=== PATIENT | female | born 1955 | race Caucasian/White ===

== ENCOUNTER 2023-05-20 10:00 | Outpatient (RCR) | payer MEDICARE, OTHER, SELFPAY ==
--- NOTE | 2023-02-17 12:27 | HP.PTEVAL_ITS ---
Patient's Visit Information Visit Information Visit Information: PRIYA MAYEN is a 67 year old F referred to Physical Therapy by Dr. Cuba Bales DO with a diagnosis of uni OA B knees. 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 She needs her knees replaced. He wants her to do AT to get stronger and lose weight and also get the water off her legs (a medication). She usually has compression stockings that she puts them on. The Dr sees her back in Mar. She uses the rolling walker since Jun. She uses it all the time. She can get around her house without it but she would be struggling. She is trying to drink a Quart of water a day. She has stairs at home to washer and dryer with 6 steps into the house with 2 rails. Sit to stand: no real trouble but uses her arms to get up. She feels that her L knee is worse than her R knee. Pain R knee pain: Pain Intensity (Out of 10): 4 L knee pain: Pain Intensity (Out of 10): 6 Objective Objective: Gait: walks with front wheeled walker with good stride length, decreased heel to toe, flexed trunk, increased SOB and increase pressure through B UE's LE MMT: R hip flex 10.5 and L 11.5 R knee ext 15.6 and L 17# R knee flex 12.8 and L 11..4 R knee AROM 101 flex -13 degrees from full extension L knee AROM 95 and -21 degrees from full extension Sit to stand: able to get up using B UE's Standing heel and toe raises Bridges 1 X 10 ( very little ROM) Pt had a lot of questions re PT/AT/surgery/losing weight etc and discussed Balance/Special Test Scores Lower Extremity Functional Score: 24 Goals Goal 1:: I HEP Goal Time Frame: 6-8 Weeks Goal 2:: Increase B knee AROM (at the time of the eval: R knee AROM 101 flex - 13 degrees from full extension L knee AROM 95 and -21 degrees from full extension). Goal Time Frame: 6-8 Weeks Goal 3:: Increase LE strength (at the time of the eval: LE MMT: R hip flex 10.5 and L 11.5 R knee ext 15.6 and L 17# R knee flex 12.8 and L 11..4) Goal Time Frame: 6-8 Weeks Goal 4:: Be able to walk back to the treatment rooms with more heel to toe gait pattern and decreased SOB Goal Time Frame: 6-8 Weeks Rehabilitation Potential Rehabilitation Potential: Good Anticipated Interventions Patient/Client Instruction: Educate patient on: Condition and Plan of Care For the Purpose of:: To decrease pain, To decrease swelling/inflammation, To increase ROM, To improve nutrient delivery to tissue, To improve muscle performance and motor function, To improve ability to perform ADL's, To increase tolerance to activity/condition/position, To decrease level of supervision to perform tasks, To improve ability of physical actions for home/community/work/leisure, To improve gait and locomotor functions, To improve health of tissue, To decrease soft tissue restriction, To increase flexibility/ROM, To improve balance and To improve safety with gait Therapeutic Exercise to Include: Strength training, Endurance training, Balance training, Postural training, Flexibilty training, Gait and locomotor training, Neuromotor development, In an aquatic setting , Active ROM, Dynamic Lumbar Stabilization and Scapular Strength/Stabilization For the Purpose of:: To decrease pain, To decrease swelling/inflammation, To increase ROM, To improve nutrient delivery to tissue, To increase oxygenation perfusion, To improve muscle performance and motor function, To improve ability to perform ADL's, To increase tolerance to activity/condition/position, To improve performance and independence with ADL's, To decrease level of supervision to perform tasks, To improve ability of physical actions for home/community/work/leisure, To improve gait and locomotor functions, To improve health of tissue, To decrease soft tissue restriction, To increase flexibility/ROM, To improve endurance, To improve balance and To improve safety with gait Functional Training to Include: Gait training For the Purpose of:: To improve gait and locomotor functions and To improve safety with gait Text: Thank you for the opportunity to evaluate your patient. For Medicare and Medicare HMO plans, please review the plan of care and approve it. It will need to be FAXED BACK to us at [phone] for Medicare purposes. For Medicare only, by signing this I certify the plan of care. Please let me know if there are questions or concerns regarding this plan of care. Physician Signature: Date:
--- NOTE | 2023-03-25 12:01 | HP.PTREVAL_ITS ---
Re-Evaluation Intro: Dr. Cuba Bales, DO, It has been my pleasure to treat PRIYA MAYEN over the last 10 visits for uni OA B knees. Please see the progress note below for an update on the physical therapy plan of care! Subjective Subjective: Just had the initial eval for her Lymphedema support stockings. She has been faithful in getting her exercises done. She likes the water. He helps her with her stretches. She feels that he endurance is getting be tter. The weather increases her pain. Can now sit with her legs out on the ottoman and she could not do that before. Objective Objective/Function: MMT: R hip flex 11.8 and L 12.5 R knee ext 21.7 and L 21.6 R knee flex 14.7 and L 14.6 R knee AROM 104 flex -13 degrees from full extension L knee AROM 104 and -12 degrees from full extension). Plan Plan Plan: ++Pt is fearful of water+++ 2X/ week for 8 weeks for AT for knee AROM (flex/ext), LE strength (hip knee and ankle), general endurance, gait training with HEP Pt will be getting treatments for the swelling in her legs per her subjective Balance/Gait/Functional tests Balance/Special Test Scores Lower Extremity Functional Score: 33 Goals Goals Goal 1:: I HEP Goal Time Frame: 6-8 Weeks Goal 2:: Increase B knee AROM (at the time of the eval: R knee AROM 101 flex - 13 degrees from full extension L knee AROM 95 and -21 degrees from full extension). Goal Time Frame: 6-8 Weeks Goal Progress: Progressing Goal 3:: Increase LE strength (at the time of the eval: LE MMT: R hip flex 10.5 and L 11.5 R knee ext 15.6 and L 17# R knee flex 12.8 and L 11..4 Goal Time Frame: 6-8 Weeks Goal Progress: Progressing Goal 4:: Be able to walk back to the treatment rooms with more heel to toe gait pattern and decreased SOB Goal Time Frame: 6-8 Weeks Goal Progress: Progressing Anticipated Interventions Anticipated Interventions Patient/Client Instruction: Educate patient on: Condition and Plan of Care For the Purpose of:: To decrease pain, To decrease swelling/inflammation, To increase ROM, To improve nutrient delivery to tissue, To improve muscle performance and motor function, To improve ability to perform ADL's, To increase tolerance to activity/condition/position, To decrease level of supervision to perform tasks, To improve ability of physical actions for home/community/work/leisure, To improve gait and locomotor functions, To improve health of tissue, To decrease soft tissue restriction, To increase f lexibility/ROM, To improve balance and To improve safety with gait Therapeutic Exercise to Include: Strength training, Endurance training, Balance training, Postural training, Flexibilty training, Gait and locomotor training, Neuromotor development, In an aquatic setting , Active ROM, Dynamic Lumbar Stabilization and Scapular Strength/Stabilization For the Purpose of:: To decrease pain, To decrease swelling/inflammation, To increase ROM, To improve nutrient delivery to tissue, To increase oxygenation perfusion, To improve muscle performance and motor function, To improve ability to perform ADL's, To increase tolerance to activity/condition/position, To improve performance and independence with ADL's, To decrease level of supervision to perform tasks, To improve ability of physical actions for home/community/work/leisure, To improve gait and locomotor functions, To improve health of tissue, To decrease soft tissue restriction, To increase flexibility/ROM, To improve endurance, To improve balance and To improve safety with gait Functional Training to Include: Gait training For the Purpose of:: To improve gait and locomotor functions and To improve safety with gait Re-Evaluation Ending Re-evaluation ending: Please do not hesitate to contact me at [phone] by phone or if you have questions or concerns regarding this new plan of care! Sincerely, GANESH Zurita
--- NOTE | 2023-03-25 12:41 | HP.OTEVAL ---
Patient's Visit Information Visit Information Visit Information: PRIYA MAYEN is a 67 year old F, referred to Occupational Therapy by Dr. Cuba Bales DO, with a diagnosis of lymphedema. Date of Evaluation: 03/25/23 Occupational Therapist: KIMBERLYN Mathis/Shayna, CHT Subjective Subjective: This 67 year old female was seen for OT eval with dx of ALEKS lymphedema: pt states she has had swelling in her LE for about three years. pt states she wears compression socks. She thinks the compression is 20-30 mmHg. Pt states she just got the compressions socks. pt states she has been using compression socks for about two years. Swelling has not changed at this time- pt is undergoing PT for bilateral knees in hope to get stronger so she can have TKR. PT states the pool therapy she was doing is helpful and she has noticed her legs are not as red. pt would like to know what she can do to decrease her leg swelling. Lymphedema (Circumferential Measure) Mid-foot: right 26cm left 26cm Ankle: right 35cm left 35cm Lower calf: right 35cm left 37cm Largest calf: right 49cm left 49cm Below knee: right 49cm left 51cm Lower Limb Functional Index Lower Extremity Functional Score: 13 Goals Goal: Patient will demonstrate a 20% reduction in edema by discharge: Yes Goal: Patient will demonstrate adequate knowledge of self-bandaging by the end of the first week.: Yes Goal: Patient will demonstrate adequate knowledge of self-massage by the end of the second week.: Yes Goal: Patient will demonstrate adequate knowledge of skin care and precautions by the end of the first week.: Yes Goal: Patient will demonstrate adequate knowledge of therapeutic exercises by discharge.: Yes Goal: Patient will select an appropriate compression garment and demonstrate adequate knowledge of correct donning technique, care and wearing schedule by discharge.: Yes Goal: Patient will voice understanding of need to replace compression garment every four to six months by discharge.: Yes Rehabilitation General Assessment: pt demo with BLE edema this decreases pts safe mobility- Rehabilitation Potential: Questionable Anticipated Interventions Anticipated Interventions: Education re Diagnosis, Manual Lymph Drainage, Education re Life-long lymphedema Management, Education re Self-Bandaging Techniques, Education re Skin Care and Precautions, Education re Self Massage Techniques, Education re Correct Donning Tech,Care&Wearing Sched Comp Garments and Home Program Visit Plan Frequency: 1-2x /Week Duration: 2-4 Weeks TEXT: Thank you for the opportunity to evaluate your patient. For Medicare and Medicare HMO plans, please review the plan of care and approve it. It will need to be FAXED BACK to us at [phone] for Medicare purposes. Please let me know if there are questions or concerns regarding this plan of care. Physician Signature: Date:
--- NOTE | 2023-04-22 10:57 | HP.PTREVAL_ITS ---
Re-Evaluation Intro: Dr. Cuba Bales, DO, It has been my pleasure to treat PRIYA MAYEN over the last 18 visits for uni OA B knees. Please see the progress note below for an update on the physical therapy plan of care! Subjective Subjective: Pt reports that the Dr injected her knees and that he would schedule surgery 07/06/22 for L TKR. Pt feels comfortable with her water therapy and has papers so she knows what to do in the water in the meantime. She is doing her HEP as well. Objective Objective/Function: 2X/ week for 4 weeks for steps ups, stairs, hip and knee strengthening (review HEP and add to it for 20 min routine) and then work out in the gym for increase muscle strength. Plan Plan Plan: 2X/ week for 4 additional weeks for review indep (Review kitchen sink exercises) HEP (step ups and stairs), LE (hip and knee strengthening, sit to stand exercises) with HEP. Balance/Gait/Functional tests Balance/Special Test Scores Lower Extremity Functional Score: 35 Goals Goals Goal 1:: I HEP Goal Time Frame: 6-8 Weeks Goal Progress: Goal Met Goal 2:: Increase B knee AROM (at the time of the eval: R knee AROM 101 flex - 13 degrees from full extension L knee AROM 95 and -21 degrees from full extension). Goal Time Frame: 6-8 Weeks Goal Progress: Progressing Goal 3:: Increase LE strength (at the time of the Re-eval: LE MMT: R hip flex 11.7 and L 11.8 R knee ext 25.8 and L 25.6 R knee flex 15.6 and L 16.2 Goal Time Frame: 6-8 Weeks Goal Progress: Progressing Goal 4:: Be able to walk back to the treatment rooms with more heel to toe gait pattern and decreased SOB Goal Time Frame: 6-8 Weeks Goal Progress: Progressing Goal 5:: Be able to go up and down the steps recip with 2 hand rails with pushing through her legs going up the steps Goal Time Frame: 2-4 Weeks Anticipated Interventions Anticipated Interventions Patient/Client Instruction: Educate patient on: Condition and Plan of Care For the Purpose of:: To decrease pain, To decrease swelling/inflammation, To increase ROM, To improve nutrient delivery to tissue, To improve muscle performance and motor function, To improve ability to perform ADL's, To increase tolerance to activity/condition/position, To decrease level of supervision to perform tasks, To improve ability of physical actions for home/community/work/leisure, To improve gait and locomotor functions, To improve health of tissue, To decrease soft tissue restriction, To increase flexibility/ROM, To improve balance and To improve safety with gait Therapeutic Exercise to Include: Strength training, Endurance training, Balance training, Postural training, Flexibilty training, Gait and locomotor training, Neuromotor development, In an aquatic setting , Active ROM, Dynamic Lumbar Stabilization and Scapular Strength/Stabilization For the Purpose of:: To decrease pain, To decrease swelling/inflammation, To increase ROM, To improve nutrient delivery to tissue, To increase oxygenation perfusion, To improve muscle performance and motor function, To improve ability to perform ADL's, To increase tolerance to activity/condition/position, To improve performance and independence with ADL's, To decrease level of supervision to perform tasks, To improve ability of physical actions for home/community/work/leisure, To improve gait and locomotor functions, To improve health of tissue, To decrease soft tissue restriction, To increase flexibility/ROM, To improve endurance, To improve balance and To improve safety with gait Functional Training to Include: Gait training For the Purpose of:: To improve gait and locomotor functions and To improve safety with gait Re-Evaluation Ending Re-evaluation ending: Please do not hesitate to contact me at [phone] by phone or if you have questions or concerns regarding this new plan of care! Sincerely, GANESH Zurita
--- NOTE | 2023-05-20 10:58 | HP.PTDCSUM ---
Discharge Summary D/C summary: It has been my pleasure to treat PRIYA MAYEN referred by Dr. Cuba Bales DO, with the diagnosis of uni OA B knees for a total of 26 visit(s). Discharge Date: 05/20/23 Please see the following information for a summary of their discharge status. Subjective Subjective: Pt reports that she is doing ok. She is doing her exercises everyday at home. She does them in AM and PM sometimes. Pt feels that she is getting stronger. She feels her SOB is still short but she has found out that her iron levels are low and she feels that she now has a little more energy since changing her meds. Pt feels stronger and once in awhile she will walk off without her walker. She is planning a TKR on 07-06-22. Pain R knee pain: Pain Intensity (Out of 10): 2 L knee pain: Pain Intensity (Out of 10): 2 B Hips: Pain Intensity (Out of 10): 1 Overall Improvement % Improvement: 70 Objective Objective/Function: LE MMT: R hip flex 14.6 and L 16.3 R knee ext 25.8 and L 25.6 R knee flex 15.6 and L 16.5 R knee AROM 107 flex -13 degrees from full extension L knee AROM 100 and -10 degrees from full extension). Stairs: Goals Goal 1:: I HEP Goal Progress: Goal Met Goal 2:: Increase B knee AROM (at the time of the eval: R knee AROM 101 flex -13 degrees from full extension L knee AROM 95 and -21 degrees from full extension). Goal Progress: Progressing Goal 3:: Increase LE strength (at the time of the Re-eval: LE MMT: R hip flex 11.7 and L 11.8 R knee ext 25.8 and L 25.6 R knee flex 15.6 and L 16.2 Goal Progress: Goal Met Goal 4:: Be able to walk back to the treatment rooms with more heel to toe gait pattern and decreased SOB Goal Progress: Progressing Goal 5:: Be able to go up and down the steps recip with 2 hand rails with pushing through her legs going up the steps Goal Progress: Goal Met Plan Plan: DC PT to HEP and AT [facility] program D/C Information Discharge Comments: DC PT to HEP d/c sentence: If there are questions or concerns regarding this patient's physical therapy, please feel free to call me at [phone]. Thank you for the referral of this patient. Sincerely, Soha Frank, MPT Balance/Gait/Functional tests Balance/Special Test Scores Lower Extremity Functional Score: 46 Improvement % Improvement: 70
== END 2023-05-20 19:00 | disposition home or self-care (01) ==
LOC: PT 10:00
PROVIDERS: Referring Provider Orthopaedic Surgery; Visit Provider Orthopaedic Surgery
DX: M17.0 Bilateral primary osteoarthritis of knee (principal)
CPT/HCPCS: 97110; 97113; 97161; 97166; 97530

== ENCOUNTER 2024-05-18 10:00 | Outpatient (RCR) | payer MEDICARE, OTHER, SELFPAY ==
--- NOTE | 2024-01-07 15:04 | HP.PTEVAL_ITS ---
Patient's Visit Information Visit Information Visit Information: PRIYA MAYEN is a 68 year old F referred to Physical Therapy by MARII GOMES with a diagnosis of 01/04/24 Left TKR. Date of Evaluation: 01/07/24 Physical Therapist: Kimberly Pavon DPT Visit Plan Frequency: 2-3x /Week Duration: 4 Weeks Plan: 01/04/24 Left TKR- Focus on ROM, strength and functional mobility HEP Given IE: Quad set, SLR, heel side, bolster extn stretch Subjective Subjective: Left TKR 01/04/[address] Bales at [place] and they spent the night and came home the next day. They feel that things are progressively getting better. Pain is located in the anterior knee- she has pain along the thigh- where the tourniquet was inflated. Worst: 5/10. Agg: bending her knee, getting up from sitting. Best: 0/10 Eases: laying in bed, ice, meds. No N/T in the toes. They can live on one floor- with 4 steps to enter- no issues to getting in and out. She has been using a FWW prior to surgery for about 1.5 years. is home to help as needed. She has lymphedema prior to surgery so she has been doing exercises- ankle pumps, marching, hip abd, seated ankle pumps, glut sets. Sleep: chair since surgery. PMHX/Meds: see list Objective Objective: Posture: forward head, rounded shoulders- can correct but does not maintain Observation: ELEUTERIO hose are very tight- blood seepage from incision pooling in bottom of bandage- pt plans to call MD after apt (did not remove) Palpation: not tender to touch Gait: step to with FWW- slow gabriela ROM: 30-70 Strength: Core: fair minus, Hip: 4-/5 throughout, Knee: Flexion: 22 Extn: 24 Ankle: 5/5 Transfers: indep with bed mobility- Sit to Stand: required UE A and is slow Balance/Special Test Scores WOMAC Total Score: 70 WOMAC Percentatge: 27.0900 Goals Goal 1:: Patient will be I with HEP and progression Goal Time Frame: 6-8 Weeks Goal 2:: Patient will demo 0-115 degrees of ROM in the left knee Goal Time Frame: 6-8 Weeks Goal 3:: Patient will ambulate >150 feet with LRD and a normalized gait pattern Goal Time Frame: 6-8 Weeks Goal 4:: Patient will asc/desc 8 stairs recip with 1 HR Goal Time Frame: 6-8 Weeks Goal 5:: Patient will report 80% improvement Goal Time Frame: 6-8 Weeks Rehabilitation Potential Physical Therapy Diagnosis: Patient presents s/p Left TKR- she has decreased ROM, LE and core strength/stabilization, proprioception, flex and muscular endurance leading to abnormal gait and decreased ability with ADL's. Rehabilitation Potential: Fair Anticipated Interventions Patient/Client Instruction: Educate patient on: Benefits of Fitness Program Therapeutic Exercise to Include: Strength training, Balance training, Coordination, Agility training, Body mechanics, Postural training, Flexibilty training, Gait and locomotor training, Neuromotor development, Passive ROM, Active ROM, Dynamic Lumbar Stabilization and Scapular Strength/Stabilization For the Purpose of:: To improve muscle performance and motor function Functional Training to Include: Gait training TENS: Yes Cryotherapy (ice pack, ice massage): Yes Thermo therapy (hot pack): Yes Ultrasound (thermal/non thermal): No Text: Thank you for the opportunity to evaluate your patient. For Medicare and Medicare HMO plans, please review the plan of care and approve it. It will need to be FAXED BACK to us at [phone] for Medicare purposes. For Medicare only, by signing this I certify the plan of care. Please let me know if there are questions or concerns regarding this plan of care. Physician Signature: Date:
--- NOTE | 2024-02-04 10:55 | HP.PTREVAL ---
Re-Evaluation Intro: MARII GOMES, It has been my pleasure to treat PRIYA MAYEN over the last 9 visits for 01/04/24 Left TKR. Please see the progress note below for an update on the physical therapy plan of care! Subjective Subjective: Patient reports that she is getting stronger. She is making good progress and is sleeping in her bed for 1.5 hours at night. Weaning from pain medication. She still has a bad right knee and feels it limits her mobility Objective Objective/Function: Posture: forward head, rounded shoulders- can correct but does not maintain Observation: good healing of incision- no s.s of infection Palpation: not tender to touch Gait: step through with FWW- attempted cane, pt is not ready with poor heel/toe pattern and required min A for balance- slow gabriela ROM: 7-112 Strength: Core: fair minus, Hip: 4-/5 throughout, Knee: Flexion: 37 Extn: 30 Ankle: 5/5 Transfers: sit to stand requires single UE A Plan Plan Plan: 02/04/24: Continue 2x a week for 4 weeks with current POC 01/04/24 Left TKR- Focus on ROM, strength and functional mobility HEP Given IE: Quad set, SLR, heel side, bolster extn stretch Balance/Gait/Functional tests Balance/Special Test Scores Tug Test: 20-30sec.=variable mobility WOMAC Total Score: 48 WOMAC Percentage: 50.0000 Goals Goals Goal 1:: Patient will be I with HEP and progression Goal Time Frame: 6-8 Weeks Goal Progress: Progressing Goal 2:: Patient will demo 0-115 degrees of ROM in the left knee Goal Time Frame: 6-8 Weeks Goal Progress: Progressing Goal 3:: Patient will ambulate >150 feet with LRD and a normalized gait pattern Goal Time Frame: 6-8 Weeks Goal Progress: Progressing Goal 4:: Patient will asc/desc 8 stairs recip with 1 HR Goal Time Frame: 6-8 Weeks Goal Progress: Progressing Goal 5:: Patient will report 80% improvement Goal Time Frame: 6-8 Weeks Goal Progress: Progressing Anticipated Interventions Anticipated Interventions Patient/Client Instruction: Educate patient on: Benefits of Fitness Program Therapeutic Exercise to Include: Strength training, Balance training, Coordination, Agility training, Body mechanics, Postural training, Flexibilty training, Gait and locomotor training, Neuromotor development, Passive ROM, Active ROM, Dynamic Lumbar Stabilization and Scapular Strength/Stabilization For the Purpose of:: To improve muscle performance and motor function Functional Training to Include: Gait training TENS: Yes Cryotherapy (ice pack, ice massage): Yes Thermo therapy (hot pack): Yes Ultrasound (thermal/non thermal): No Re-Evaluation Ending Re-evaluation ending: Please do not hesitate to contact me at [phone] by phone or if you have questions or concerns regarding this new plan of care! Sincerely, JANA LópezT
--- NOTE | 2024-03-03 10:43 | HP.PTREVAL ---
Re-Evaluation Intro: MARII GOMES, It has been my pleasure to treat PRIYA MAYEN over the last 17 visits for 01/04/24 Left TKR. Please see the progress note below for an update on the physical therapy plan of care! Subjective Subjective: Pt thinks that she is getting stronger. She is still limited at home due to the walker. Objective Objective/Function: L knee AROM: -9 to 114 Gait: walks with flexed trunk and antalgic gait. Had pt walk with rollator for a more smooth gait pattern and she was very SOB... encouraged pt to walk 1-2 time per day with rollator to work on contdiditon Plan Plan Plan: 02/04/24: Continue 2x a week for 4 weeks with current POC 01/04/24 Left TKR- Focus on ROM, strength and functional mobility HEP Given IE: Quad set, SLR, heel side, bolster extn stretch Balance/Gait/Functional tests Balance/Special Test Scores Tug Test: 20-30sec.=variable mobility WOMAC Total Score: 26 WOMAC Percentage: 72.9200 Goals Goals Goal 1:: Patient will be I with HEP and progression Goal Time Frame: 6-8 Weeks Goal Progress: Progressing Goal 2:: Patient will demo 0-115 degrees of ROM in the left knee Goal Time Frame: 6-8 Weeks Goal Progress: Progressing Goal 3:: Patient will ambulate >150 feet with LRD and a normalized gait pattern Goal Time Frame: 6-8 Weeks Goal Progress: Progressing Goal 4:: Patient will asc/desc 8 stairs recip with 1 HR Goal Time Frame: 6-8 Weeks Goal Progress: Progressing Goal 5:: Patient will report 80% improvement Goal Time Frame: 6-8 Weeks Goal Progress: Progressing Anticipated Interventions Anticipated Interventions Patient/Client Instruction: Educate patient on: Benefits of Fitness Program Therapeutic Exercise to Include: Strength training, Balance training, Coordination, Agility training, Body mechanics, Postural training, Flexibilty training, Gait and locomotor training, Neuromotor development, Passive ROM, Active ROM, Dynamic Lumbar Stabilization and Scapular Strength/Stabilization For the Purpose of:: To improve muscle performance and motor function Functional Training to Include: Gait training TENS: Yes Cryotherapy (ice pack, ice massage): Yes Thermo therapy (hot pack): Yes Ultrasound (thermal/non thermal): No Re-Evaluation Ending Re-evaluation ending: Please do not hesitate to contact me at [phone] by phone or if you have questions or concerns regarding this new plan of care! Sincerely, Soha Frank, MPT
--- NOTE | 2024-04-05 11:34 | HP.PTREVAL ---
Re-Evaluation Intro: MARII GOMES, It has been my pleasure to treat PRIYA MAYEN over the last 26 visits for 01/04/24 Left TKR. Please see the progress note below for an update on the physical therapy plan of care! Subjective Subjective: Pt is sad today due to her best friends mom passing away. She is doing good. She has been going up and down steps and her R leg feels worse than her surgical leg and has been using her R leg as the bad knee. RTD on Apr 19. Pt wants to work on doing stairs with just 1 railing. Objective Objective/Function: L knee flexion 108 degrees Pt is walking more upright with less weight through her UE's with gait, WBOS and decrease stance time on the R now, decreased heel to toe Stairs: up and down recip with 2 hand rails (still pulls self up the stairs quiet a bit). SOB on steps Feel pt is limited by her SOB and swelling of the L LE. Plan Plan Plan: 02/04/24: Continue 2x a week for 4 weeks with current POC 01/04/24 Left TKR- Focus on ROM, strength and functional mobility HEP Given IE: Quad set, SLR, heel side, bolster extn stretch Balance/Gait/Functional tests Balance/Special Test Scores Lower Extremity Functional Score: 35 Tug Test: 20-30sec.=variable mobility WOMAC Total Score: 26 WOMAC Percentage: 72.9200 Goals Goals Goal 1:: Patient will be I with HEP and progression Goal Time Frame: 6-8 Weeks Goal Progress: Progressing Goal 2:: Patient will demo 0-115 degrees of ROM in the left knee Goal Time Frame: 6-8 Weeks Goal Progress: Progressing Goal 3:: Patient will ambulate >150 feet with LRD and a normalized gait pattern Goal Time Frame: 6-8 Weeks Goal Progress: Progressing Goal 4:: Patient will asc/desc 8 stairs recip with 1 HR Goal Time Frame: 6-8 Weeks Goal Progress: Progressing Goal 5:: Patient will report 80% improvement Goal Time Frame: 6-8 Weeks Goal Progress: Progressing Anticipated Interventions Anticipated Interventions Patient/Client Instruction: Educate patient on: Benefits of Fitness Program Therapeutic Exercise to Include: Strength training, Balance training, Coordination, Agility training, Body mechanics, Postural training, Flexibilty training, Gait and locomotor training, Neuromotor development, Passive ROM, Active ROM, Dynamic Lumbar Stabilization and Scapular Strength/Stabilization For the Purpose of:: To improve muscle performance and motor function Functional Training to Include: Gait training TENS: Yes Cryotherapy (ice pack, ice massage): Yes Thermo therapy (hot pack): Yes Ultrasound (thermal/non thermal): No Re-Evaluation Ending Re-evaluation ending: Please do not hesitate to contact me at [phone] by phone or if you have questions or concerns regarding this new plan of care! Sincerely, Soha Frank, MPT
--- NOTE | 2024-05-04 11:24 | HP.PTREVAL ---
Re-Evaluation Intro: MARII GOMES, It has been my pleasure to treat PRIYA MAYEN over the last 35 visits for 01/04/24 Left TKR. Please see the progress note below for an update on the physical therapy plan of care! Subjective Subjective: Pt reports that she knows she could be walking around here if her R knee did not hurt so much. She is having surgery in August on her R knee. Objective Objective/Function: L knee -5-0-105 Stairs: up 4 steps with step two pattern with 1 hand rail and 1 cane with CGA (using up with the L and down with the R). Gait: walks with rollator with flexed trunk and more support on arms then needs to be. Pt will work on this Plan Plan Plan: 3 additional visits to learn indep gym routine for knee strength, gait endurance, hip strength, stairs with rail and cane with HEP Balance/Gait/Functional tests Balance/Special Test Scores Lower Extremity Functional Score: 40 Tug Test: 20-30sec.=variable mobility WOMAC Total Score: 26 WOMAC Percentage: 72.9200 Goals Goals Goal 1:: Patient will be I with HEP and progression Goal Time Frame: 6-8 Weeks Goal Progress: Goal Met Goal 2:: Patient will demo 0-115 degrees of ROM in the left knee Goal Time Frame: 6-8 Weeks Goal Progress: Progressing Goal 3:: Patient will ambulate >150 feet with LRD and a normalized gait pattern Goal Time Frame: 6-8 Weeks Goal Progress: Progressing Goal 4:: Patient will asc/desc 8 stairs recip with 1 HR Goal Time Frame: 6-8 Weeks Goal Progress: Progressing Goal 5:: Patient will report 80% improvement Goal Time Frame: 6-8 Weeks Goal Progress: Goal Met Anticipated Interventions Anticipated Interventions Patient/Client Instruction: Educate patient on: Benefits of Fitness Program Therapeutic Exercise to Include: Strength training, Balance training, Coordination, Agility training, Body mechanics, Postural training, Flexibilty training, Gait and locomotor training, Neuromotor development, Passive ROM, Active ROM, Dynamic Lumbar Stabilization and Scapular Strength/Stabilization For the Purpose of:: To improve muscle performance and motor function Functional Training to Include: Gait training TENS: Yes Cryotherapy (ice pack, ice massage): Yes Thermo therapy (hot pack): Yes Ultrasound (thermal/non thermal): No Re-Evaluation Ending Re-evaluation ending: Please do not hesitate to contact me at [phone] by phone or if you have questions or concerns regarding this new plan of care! Sincerely, Soha Frank, MPT
--- NOTE | 2024-05-18 12:56 | HP.PTDCSUM_ITS ---
Discharge Summary D/C summary: It has been my pleasure to treat PRIYA MAYEN referred by MARII GOMES, with the diagnosis of 01/04/24 Left TKR for a total of 38 visit(s). Discharge Date: 05/18/24 Please see the following information for a summary of their discharge status. Subjective Subjective: She walked up and down the steps with 1 handrail because she forgot her cane and that was the first. She feels comfortable doing the machines on her own and if she needs any help her will help her. Her R knee is still bothering her the most. She is having her R knee done in August. Pain L knee: Pain Intensity (Out of 10): 0 R knee: Pain Intensity (Out of 10): 2 Overall Improvement % Improvement: 85 Objective Objective/Function: L knee AROM: -9 to 107 Stairs: pt is able to go up and down the steps very slowly recip with a straight cane and a hand rail with CGA. Pt struggle more with ascending the steps than descending the steps. Goals Goal 1:: Patient will be I with HEP and progression Goal Progress: Goal Met Goal 2:: Patient will demo 0-115 degrees of ROM in the left knee Goal Progress: Progressing Goal 3:: Patient will ambulate >150 feet with LRD and a normalized gait pattern Goal Progress: Progressing Goal 4:: Patient will asc/desc 8 stairs recip with 1 HR Goal Progress: Progressing Goal 5:: Patient will report 80% improvement Goal Progress: Goal Met Plan Plan: DC PT to [facility] program D/C Information Discharge Comments: DC PT to [facility] program d/c sentence: If there are questions or concerns regarding this patient's physical therapy, please feel free to call me at [phone]. Thank you for the referral of this patient. Sincerely, Soha Frank, MPT Balance/Gait/Functional tests Balance/Special Test Scores Lower Extremity Functional Score: 40 Tug Test: 20-30sec.=variable mobility WOMAC Total Score: 26 WOMAC Percentage: 72.9200 Improvement % Improvement: 85
== END 2024-05-18 13:13 | disposition home or self-care (01) ==
LOC: PT 10:00
DX: M17.12 Unilateral primary osteoarthritis, left knee (principal); Z96.652 Presence of left artificial knee joint; Z47.1 Aftercare following joint replacement surgery
CPT/HCPCS: 97014; 97110; 97113; 97162; 97530; G0283

== ENCOUNTER 2024-12-29 10:00 | Outpatient (RCR) | payer MEDICARE, OTHER, SELFPAY ==
--- NOTE | 2024-09-26 11:58 | HP.PTEVAL ---
Patient's Visit Information Visit Information Visit Information: PRIYA MAYEN is a 69 year old F referred to Physical Therapy by JEWEL Terrell with a diagnosis of R TKA 09/22/24. Date of Evaluation: 09/26/24 Physical Therapist: Merrick James, PT, ATC Visit Plan Frequency: 2-3x /Week Duration: 6-12 weeks Plan: R knee PROM/mobs, stretching and strengthening, balance and proprio, gait training, stair negotiation, nustep, and HEP Subjective Subjective: DOS: 09/22/24. Pt reports she had a R TKA performed at that time. Pt reports she had a L TKA performed in December of 2023. Pt reports she feels like she is having a more difficult time with healing at this point. Pt reports she had to have a wound vac placed on her R knee this time around. Pt also notes she was sent home this time with no pain meds, which has resulted in her having a lot of pain. Pt denies sleep difficulty at this time. Pt also denies any tingling or numbness in her R LE. Pt reports she has been feeling very nauseated since having her surgery. Pt reports she has not been walking much since her surgery secondary to pain. Pt reports R knee pain is 2/10 while sitting here at rest, but elevates to 8/10 when she stands up. Pt lives in a one story house with 5 steps to enter her house. Pain R TKA: Pain Intensity (Out of 10): 2 Pain Intensity Range: 8 Objective Objective: Neuro: B LE sensation is WNL to light touch. Observation: Knee is swollen. Still has coverings on wound. ROM: L knee 0-5-103; R knee 0-17-80 degrees MMT: L knee flex= 30, ext= 26 #F; R knee flex= 23, ext= 8 #F TUG: Unable to perform the test this date Gait: Pt is able to ambulate 45 feet with WW and CGAx1 Transfers: sit to stand requires modAx1 Balance/Special Test Scores Lower Extremity Functional Score: 10 Goals Goal 1:: Decrease R knee pain x 50% to aid with ambulation Goal Time Frame: 6-8 Weeks Goal 2:: Increase R knee ROM x 30 degrees to aid with restoring a more normalized gait pattern Goal Time Frame: 6-8 Weeks Goal 3:: Pt will perform the TUG test in under 20 seconds Goal Time Frame: 6-8 Weeks Goal 4:: Increase R knee strength x 20#F to aid with stair negotiation Goal Time Frame: 6-8 Weeks Goal 5:: I with HEP Goal Time Frame: 6-8 Weeks Rehabilitation Potential Physical Therapy Diagnosis: Pt has R knee pain, weakness, and limited ROM secondary to R TKA Rehabilitation Potential: Good Anticipated Interventions Patient/Client Instruction: Educate patient on: Condition and Plan of Care For the Purpose of:: To improve self management Therapeutic Exercise to Include: Strength training, Balance training, Flexibilty training, Gait and locomotor training, Passive ROM and Active ROM For the Purpose of:: To decrease pain, To increase ROM and To improve muscle performance and motor function Cryotherapy (ice pack, ice massage): Yes For the Purpose of:: To decrease pain Text: Thank you for the opportunity to evaluate your patient. For Medicare and Medicare HMO plans, please review the plan of care and approve it. It will need to be FAXED BACK to us at [phone] for Medicare purposes. For Medicare only, by signing this I certify the plan of care. Please let me know if there are questions or concerns regarding this plan of care. Physician Signature: Date:
--- NOTE | 2024-11-07 11:04 | HP.PTREVAL_ITS ---
Re-Evaluation Intro: JEWEL Terrell, It has been my pleasure to treat PRIYA MAYEN over the last 13 visits for R TKA 09/22/24. Please see the progress note below for an update on the physical therapy plan of care! Subjective Subjective: I still get really sore when I bend my knee Objective Objective/Function: R knee pain ranges from 2-4/10 R knee ROM: 0-10-100 degrees R knee MMT: flex= 36, ext= 34 #F Pt is progressibng well with ROM and strength, but continues to lack functional strength for transfers and stair negotiation Plan Plan Plan: 11/07/24: Continue to focus on ROM and strengthening, most notably the quads. Consider gait training with a cane when appropriate. Balance/Gait/Functional tests Balance/Special Test Scores Lower Extremity Functional Score: 23 Goals Goals Goal 1:: Decrease R knee pain x 50% to aid with ambulation Goal Time Frame: 6-8 Weeks Goal Progress: Progressing Goal 2:: Increase R knee ROM x 30 degrees to aid with restoring a more normalized gait pattern Goal Time Frame: 6-8 Weeks Goal Progress: Progressing Goal 3:: Pt will perform the TUG test in under 20 seconds Goal Time Frame: 6-8 Weeks Goal 4:: Increase R knee strength x 20#F to aid with stair negotiation Goal Time Frame: 6-8 Weeks Goal Progress: Progressing Goal 5:: I with HEP Goal Time Frame: 6-8 Weeks Goal Progress: Progressing Anticipated Interventions Anticipated Interventions Patient/Client Instruction: Educate patient on: Condition and Plan of Care For the Purpose of:: To improve self management Therapeutic Exercise to Include: Strength training, Balance training, Flexibilty training, Gait and locomotor training, Passive ROM and Active ROM For the Purpose of:: To decrease pain, To increase ROM and To improve muscle p erformance and motor function Cryotherapy (ice pack, ice massage): Yes For the Purpose of:: To decrease pain Re-Evaluation Ending Re-evaluation ending: Please do not hesitate to contact me at [phone] by phone or if you have questions or concerns regarding this new plan of care! Sincerely, Merrick James, PT, ATC
--- NOTE | 2024-12-29 10:49 | HP.PTDCSUM ---
Discharge Summary D/C summary: It has been my pleasure to treat PRIYA MAYEN referred by JEWEL Terrell, with the diagnosis of R TKA 09/22/24 for a total of 22 visit(s). Discharge Date: Please see the following information for a summary of their discharge status. Subjective Subjective: Pt reports no pain today Pain R TKA: Pain Intensity (Out of 10): 0 Overall Improvement % Improvement: 85 Objective Objective/Function: R knee pain ranges from 0-2/10 R knee MMT: flex= 36, ext= 35 #F R knee ROM: 0-100 degrees Pt is I with HEP Goals Goal 1:: Decrease R knee pain x 50% to aid with ambulation Goal Progress: Goal Met Goal 2:: Increase R knee ROM x 30 degrees to aid with restoring a more normalized gait pattern Goal Progress: Progressing Goal 3:: Pt will perform the TUG test in under 20 seconds Goal 4:: Increase R knee strength x 20#F to aid with stair negotiation Goal Progress: Progressing Goal 5:: I with HEP Goal Progress: Goal Met Plan Plan: Discharge to gym routine D/C Information d/c sentence: If there are questions or concerns regarding this patient's physical therapy, please feel free to call me at [phone]. Thank you for the referral of this patient. Sincerely, Merrick James, PT, ATC Balance/Gait/Functional tests Balance/Special Test Scores Lower Extremity Functional Score: 23 WOMAC Total Score: 17 WOMAC Percentage: 82.3000 Improvement % Improvement: 85
== END 2024-12-29 12:57 | disposition home or self-care (01) ==
LOC: PT 10:00
PROVIDERS: Referring Provider Physician Assistant; Visit Provider Physician Assistant
DX: Z47.1 Aftercare following joint replacement surgery (principal); M17.11 Unilateral primary osteoarthritis, right knee; Z96.651 Presence of right artificial knee joint
CPT/HCPCS: 97110; 97140; 97161; 97530